=== PATIENT | male | born 1940 | race Caucasian/White ===

== ENCOUNTER 2022-11-24 11:44 | Emergency (ER) | payer OTHER ==
[~2022-11-24] VITALS: Ht 172.7 cm; Wt 63.1 kg
[2022-11-24 13:04] VITALS: BP 137/88
[2022-11-24] MEDS ORDERED: TETANUS-DIPTH-ACEL PERTUSSIS 0.5ML SYR Tdap IM ONE (13:30)
[2022-11-24] MEDS ORDERED: CEPH-322 PO (13:42)
== END 2022-11-24 12:50 | disposition home or self-care (01) ==
LOC: ER 11:44
DX: S51.811A Laceration without foreign body of right forearm, initial encounter (principal); Z98.890 Other specified postprocedural states; W18.39XA Other fall on same level, initial encounter; Y93.89 Activity, other specified; Y92.59 Other trade areas as the place of occurrence of the external cause; Y99.8 Other external cause status
CPT/HCPCS: 12002; 90471; 90715

== ENCOUNTER 2023-03-27 12:42 | Emergency (ER) | payer OTHER ==
[~2023-03-27] VITALS: Ht 172.7 cm; Wt 63.2 kg
[~2023-03-27 12:42] MED LIST: CEPH-322 PO
[2023-03-27 16:51] VITALS: BP 180/97
== END 2023-03-27 16:54 | disposition home or self-care (01) ==
LOC: ER 12:42
DX: S09.8XXA Other specified injuries of head, initial encounter (principal); W18.39XA Other fall on same level, initial encounter; Y93.89 Activity, other specified; Y92.89 Other specified places as the place of occurrence of the external cause; Y99.8 Other external cause status
CPT/HCPCS: 70450